=== PATIENT | male | born 1980 | race Caucasian/White ===

== ENCOUNTER 2024-11-19 10:30 | Emergency (ER) | payer BC, SELFPAY ==
[2024-11-19 10:47] VITALS: BP 166/115; PULSE 99; RESP 18; TEMP 36.6; O2SAT 95; BMI 32.0
--- NOTE | 2024-11-19 11:28 | ED.GENADULT ---
HPI - General Adult General Date Seen: 11/19/24 Chief complaint: Hypertension Stated complaint: High BP - Time Seen by Provider: 11/19/24 10:32 Source: patient Mode of arrival: ambulatory Limitations: no limitations History of Present Illness HPI narrative: Is a very nice 44-year-old gentleman who presents here for evaluation of elevated blood pressure, and facial flushing. He has was started on hydrochlorothiazide 25 mg last week. This was done in the indication of elevated blood pressure and also some fluid in his legs bilaterally, he was also given the diagnosis of diabetes, which caused a lot of anxiety for himself. He has been taking his blood pressure anywhere from 1-2 times per day, getting radiated readings in the 130-170 range systolic, and 100-120 diastolic. This morning he went to work at [employer]. He noted that his face was flushed, felt unwell, maybe a little bit of nausea while he was driving to work. He also described altered sensation across his face, more on the right but also on the left side. He does admit that he thinks he may had an anxiety attack at work. But overall felt that he was justified in to coming in here to be seen. He was driven here by a co-worker. No history of chest pain shortness of breath, syncopal episodes exertional component to any of the above, he has had no leg swelling if anything since he started the hydrochlorothiazide he has noted that his leg swelling of the LEs. Denies alcohol use, or drug use. Family history of heart disease in his grandfather who he thinks in his 60s. His cholesterol is good, lifetime nonsmoker but does have high blood pressure and diabetes type 2 he says now. Now he feels pretty good here. In talking to me Related Data Home Medications ?Medication ?Instructions ?Recorded ?Confirmed esomeprazole magnesium 20 mg 20 mg PO DAILY 11/19/24 11/19/24 capsule,delayed release (Acid Rocket Motor Tester (esomeprazole)) hydrochlorothiazide 25 mg tablet 25 mg PO DAILY 11/19/24 11/19/24 metformin 1,000 mg tablet 1,000 mg PO DAILY 11/19/24 11/19/24 Allergies Allergy/AdvReac Type Severity Reaction Status Date / Time No Known Drug Allergies Allergy Verified 11/19/24 10:56 Review of Systems Status of ROS: Reports: 10 or more systems reviewed and unremarkable except as noted in History and below [facility] Social History Smoking Status: Never smoker How often do you have a drink containing alcohol: never AUDIT-C Alcohol total score: 0 Non-prescribed substance use: denies use Exam Narrative: Exam Narrative: On examination in room 2 he is in no apparent distress, does seem slightly anxious, pupils equal round reactive to light his fundi are normal extraocular muscles are normal, cranial nerves 3-12 are normal his TMs are normal his oropharynx is normal, and his neck social no lymphadenopathy normal carotid a pulse says, with no bruits JVP is flat, and thyroid is normal midline not enlarged and nontender. His chest is good air entry bilaterally with no wheezing crackles noted his heart sounds are normal, his abdomen is soft and obese there is no guarding no organomegaly bowel sounds are normal he does not have a tremor, he has no rashes, he is neurologically intact in his upper lower extremities with good proximal distal power fingers nose testing is normal, he is able to scroll on his phone, and find his medication for me quite easily. Const: Vital Signs, click to edit/add: Vital Signs - 24 hr 11/19/24 10:47 Temperature 97.9 F Pulse Rate [Right Pulse Oximeter] 99 Respiratory Rate 18 Blood Pressure [Ri ght Upper Arm] 166/115 H Pulse Oximetry 95 Oxygen Delivery Me thod Room Air Documenting provider has reviewed patient's vital signs: yes Course Course ED Course: I discussed with the patient, he is having no acute symptoms, I do believe there is a number good a medical anxiety with the symptoms overall and he is now at baseline a I think a reasonable course here as is his basic metabolic profile is normal, that I think we can let him go home, he is reassured by this follow-up with primary care and consideration of adding an ASHLEY-inhibitor. Return as needed we went over signs and symptoms of worsening. Vital Signs Vital signs: Initial Vital Signs Temperature 97.9 F 11/19/24 10:47 Temperature Source Temporal Artery Scan 11/19/24 10:47 Pulse Rate 99 11/19/24 10:47 Pulse Rhythm Regular 11/19/24 10:47 Pulse Strength 3+ Normal 11/19/24 10:47 Respiratory Rate 18 02/06/25 10:47 Blood Pressure 166/115 H 11/19/24 10:47 Blood Pressure Mean 132 H 11/19/24 10:47 Blood Pressure Position Sitting 11/19/24 10:47 Pulse Oximetry 95 11/19/24 10:47 Oxygen Delivery Method Room Air 11/19/24 10:47 Vital Signs Temperature 97.9 F 11/19/24 10:47 Pulse Rate 99 11/19/24 10:47 Respiratory Rate 18 11/19/24 10:47 Blood Pressure 166/115 H 11/19/24 10:47 Pulse Oximetry 95 11/19/24 10:47 Oxygen Delivery Method Room Air 11/19/24 10:47 Temperature 97.9 F 11/19/24 10:47 Pulse Rate 99 11/19/24 10:47 Respiratory Rate 18 11/19/24 10:47 Blood Pressure 166/115 H 11/19/24 10:47 Pulse Oximetry 95 11/19/24 10:47 Oxygen Delivery Method Room Air 11/19/24 10:47 Medical Decision Making MDM Narrative Medical decision making narrative: I discussed with him that I think that there is an element of anxiety along with high blood pressure, I am not too worried about his symptoms, but would like to check some labs as he is on hydrochlorothiazide, which cause can cause some electrolyte abnormalities, we will also do an EKG, and then I will come back and talk to him and see how he is doing. I did consider other possibilities such as myocardial infarction stroke, TIA, pulmonary embolism, as possibilities Medical Records Medical records reviewed: Yes I reviewed the patient's medical records Lab Data Lab results reviewed: Yes I reviewed the patient's lab results Labs: Lab Results 11/19/24 11/19/24 Range/Units 11:15 11:25 WBC 5.61 (4.50-11.00) K/uL RBC 5.12 (4.30-5.90) m/uL Hgb 15.5 (13.5-17.5) gm/dL Hct 45.0 (37.0-53.0) % MCV 88 (80-100) fL MCH 30 (26-34) pg MCHC 34 (32-36) gm/dL RDW Coeff of [place] 12.4 (11.5-15.5) % Plt Count 177 (140-440) K/uL Neut % (Auto) 56.7 (42.0-72.0) % Lymph % (Auto) 29.9 (20-44) % [place] % (Auto) 10.0 (0.0-11.0) % Eos % (Auto) 2.3 (0.0-7.0) % Baso % (Auto) 0.9 (0.0-3.0) % Neut # (Auto) 3.18 (1.7-7.0) K/uL Lymph # (Auto) 1.68 (0.90-2.90) K/uL [place] # (Auto) 0.60 (0.00-0.90) K/UL Eos # (Auto) 0.13 (0.00-0.50) K/uL Baso # (Auto) 0.05 (0.00-0.30) K/uL Abs Immat Gran (auto) 0.01 (0.00-0.30) K/uL Imm/Tot Granulo (auto) 0.2 % Sodium 138 (135-149) mmol/L Potassium 4.1 (3.6-5.1) mmol/L Chloride 105 (96-114) mmol/L Carbon Dioxide 27 (20-32) mmol/L Anion Gap 6 L (7-15) mEq/L BUN 19 (5-24) mg/dL Creatinine 0.9 (0.5-1.5) mg/dL Estimated Creat Clear 130.63 Estimated GFR 107 ml/min Glucose 143 H (60-115) mg/dL Calcium 9.2 (8.4-10.6) mg/dL POC Troponin I 0.01 (0.01-0.04) ng/ml ECG Data Attestation: I personally reviewed and interpreted this ECG as follows: Prior ECG tracings: not available for review Interpretation: EKG shows normal sinus rhythm, with a ventricular rate 84, no acute ST wave changes, normal QRS normal QT and QTC. Discharge Plan Discharge Clinical Impression: Hypertension, Anxiety about health, Diabetes Patient Disposition: Home, Self-Care Condition: Stable Instructions: Hypertension (ED), Diabetes and Nutrition (ED), Diabetes and Exercise (ED) Additional Instructions: Reassurance given, continue medications as directed, follow-up with primary care if he has morales ice heat, your labs are reassuring with all ,I think a lot of how this is just as checking your blood pressure once a day that he is keeping a record, and follow-up with primary care physician, return here if increasing symptoms, headaches or other issues. Activity Level: No Restrictions Discharge Diet: Diabetic Prescriptions: No Action hydrochlorothiazide 25 mg tablet 25 mg PO DAILY metformin 1,000 mg tablet 1,000 mg PO DAILY esomeprazole magnesium [Acid Rocket Motor Tester (esomeprazole)] 20 mg capsule,delayed release(DR/EC) 20 mg PO DAILY Follow Up/Referrals: Provider,Not a Local [Primary Care Provider] - Stand Alone Forms: [employer] Info Instructions
--- OUTSIDE RECORDS SUMMARY | 2024-11-19 11:42 | XMS_ITS | Encounter Summary ---
Author Organization [facility] Address [address] [place] [address] Care Team Providers Care Hydroelectric Operator Name Role Phone Annalisa Mas MD Primary Care Provider [phone] Reason for Referral * Consult/Transfer Care (Routine) - New Request Specialty Diagnoses / Procedures Referred By Contac t Referred To Contact Diagnoses Type 2 diabetes mellitus without complication, without long-term current use of insulin (HRC) [place] [address] [place] [address] Referral ID Status Reason Start Date Expiration Date V isits Requested Visits Authorized [id number] New Request 11/12/2024 02/11/2026 1 1 Scheduling Instructions Your clinician has recommended an appointment with [facility]. You may call [phone] to schedule your appointment. We suggest you call your health insurance company about your coverage and benefits for this appointment. Question Answer Appointment Urgency? Non-Urgent Reason for visit New diagnosis (up to 10 hrs): Group Ed as appropriate Education / Management Needs (Additional hours may be needed) Medication Start/Educator to Choose, Initiate and Adjust per Standing Order; DM Education Participation Barriers (To Small Group Ed)? None Certification statement I certify that I am managing this patient s condition and education Plan of Care Diabetes self-management training includes: healthy eating, physical activity, monitoring, medications, reducing risks, problem-solving, healthy coping. Changes to plan should be documented in comment box. Additional details found in standing order. Individuals may be eligible for both DSMT and MNT services in the same year. I approve the delivery of initial MNT (3hrs) and/or annual follow-up MNT (2hrs). Yes Comments Other Barriers or Additional Comments: Last 2 A1c Performed in lab: HGB A1C (%) Date Value 04/17/2018 5.8 (H) 10/11/2015 5.5 Hemoglobin A1C (%) Date Value 09/07/2020 5.9 (H) Last 2 Point of Care A1c: Hemoglobin A1C (Rapid) (%) Date Value 11/10/2024 7.1 (H) 07/16/2023 6.1 (H) L BUFFER Encounter Details Date Type Department Care Team (Late st Contact Info) Description 11/12/2024 Notes/Orders [facility] [address] [place] [id number] Annalisa Mas MD [address] [place] [phone] Type 2 diabetes mellitus without complication, without long-term current use of insulin (HRC) (Primary Dx); Pre-diabetes Social History Tobacco Use Types Packs/Day Years Used Date Smoking Tobacco: Never Smokeless Tobacco: Never Alcohol Use Standard Drinks/Week Comments Yes 0 (1 standard drink = 0.6 oz pur e alcohol) 1-2x/year PHQ-2 Answer Date Recorded PHQ-2 Score 0 11/10/2024 Financial Resource Strain Answer Date R ecorded Is it hard for you to pay fo r the very basics like food, housing, medical care or heating? No 07/15/2023 Food Insecurity Answer Date Recorded Does your food run out before you have the money to buy more? No 07/15/2023 Transportation Needs Answer Date Record ed Does a lack of transportatio n keep you from your medical appointments or from getting your medications? No 023 Sex and Gender Information Value Date Recorded Sex Assigned at Not on file Gender Identity Not on file Sexual Orientation Not on file documented as of this encounter Plan of Treatment Upcoming Encounters Date Type Department Care Team (Late st Contact Info) Description 12/10/2024 8:00 AM WHEEL BUFFER Appointment [facility] [address] [place] [address] [place] [address] [place] [address] 12/11/2024 7:30 AM WHEEL BUFFER Telemedicine [facility] [address] [address] Marielle Meek, THAI, LD, [facility] [address] [place] [address] 12/15/2024 8:00 AM WHEEL BUFFER Appointment [facility] [address] Noninvasive Cardiology [address] [place] [phone] 12/25/2024 7:30 AM CDT Telemedicine [facility] Diabetes [address] [address] Marielle Meek RDN, LD, [facility] [address] [place] [address] 01/21/2025 8:40 AM CDT Appointment [facility] [id number] [place] [address] Clau Ortiz, MANAGER RESEARCH, PAID INTERNSHIP [address] [facility] [address] [place] [address] 02/15/2025 8:00 AM CDT Appointment [facility] [address] [place] [id number] Scheduled Referrals Name Type Priority Associated Diagnoses Orde r Schedule Diabetes Education and MNT - Adult/Peds Referral Routine Type 2 diabetes mellitus without complication, without long-term current use of insulin (HRC) Ordered: 11/12/2024 documented as of this encounter Visit Diagnoses Diagnosis Type 2 diabetes mellitus without complication, without long-term current use of insulin (HRC)- Primary Pre-diabetes Other abnormal glucose documented in this encounter Care Teams Hydroelectric Operator Relationship Specialty Start [place] [address] [place] [address] PCP - General Family Practice 08/14/16 documented as of this encounter
--- OUTSIDE RECORDS SUMMARY | 2024-11-19 11:42 | XMS_ITS | Encounter Summary ---
Author Organization [facility] Address [address] [place] [address] Care Team Providers Care Supervisor [employer] Name Role Phone Annalisa Mas MD Primary Care Provider Reason for Visit * Reason Comments Refill metFORMIN XR (GLUCOP LIZA XR) 500 MG 24 hour release tablet [Pharmacy Med Name: METFORMIN HCL ER 500 MG TABLET] Encounter Details Date Type Department Care Team (Late st Contact Info) Description 10/20/2024 Refill [facility] [address] [place] [address] [place] [address] [place] [address] Refill (metFORMIN XR (GLUCOPHAGE XR) 500 MG 24 hour release tablet [Pharmacy Med Name: METFORMIN HCL ER 500 MG TABLET]) Social History Tobacco Use Types Packs/Day Years Used Date Smoking Tobacco: Never Smokeless Tobacco: Never Alcohol Use Standard Drinks/Week Comments Yes 0 (1 standard drink = 0.6 oz pur e alcohol) 1-2x/year PHQ-2 Answer Date Recorded PHQ-2 Score 0 07/16/2023 Financial Resource Strain Answer Date R ecorded [...] on file documented as of this encounter Nursing Notes * Abbie Odell - 11/02/2024 9:09 AM CST Medication Refill - Due for Visit Medication still pending, patient is due to be seen in the next 30 days. Called patient, was: unable to reach patient. 2nd call attempted. Unsuccessful in reaching patient. [employer] (acquired by [employer] in 2014)t message sent. Frontline Action: Route to clinician identified in nursing documentation below. Clinician Action: Unsuccessful in reaching patient to schedule, requests refill. Please determine whether refill is appropriate. Recommend using ???Refuse All?? quick action to address request. S MANAGER * Abbie Odell - 11/02/2024 9:08 AM CST Medication Refill - Due for Visit Medication still pending, patient is due to be seen in the next 30 days. Called patient, was: unable to reach patient. 1st call attempted. Left message to call back. Scheduling Action: Patient needs to schedule an appointment in the next 30 days. If able to schedule, please document date of appointment and route to clinician/pool identified in nursing documentation below. S MANAGER * Tonja Marley RN - 10/22/2024 4:11 PM CST Further Assistance Needed on Refill from [employer] Machine Setter Patient is due for Qualifying Visit and labs Medication is still pending. Patient is due for an Office/Video Visit in the next 30 days. Call Patient and document using .RUDY. After attempting to schedule patient: Please route to: Annalisa Mas MD Requested Prescriptions Pending Prescriptions Disp Refills metFORMIN XR (GLUCOPHAGE XR) 500 MG 24 hour release tablet [Pharmacy Med Name: METFORMIN HCL ER 500MG TABLET] 180 Tablet 0 Sig: TAKE 2 TABLETS BY MOUTH EVERY EVENING WITH A MEAL. S MANAGER documented in this encounter Plan of Treatment Upcoming Encounters Date Type Department Care Team (Late st Contact Info) Description 12/10/2024 8:00 AM PRESS MANAGER Appointment [facility] [address] [place] [address] [place] [address] [place] [address] 12/11/2024 7:30 AM PRESS MANAGER Telemedicine [facility] Education [address] [address] Marielle Meek RDN, LD, [facility] [address] [place] [address] 12/15/2024 8:00 AM PRESS MANAGER Appointment [facility] [address] Noninvasive Cardiology [address] [place] [address] 12/25/2024 7:30 AM CDT Telemedicine [facility] Diabetes [address] [address] Marielle Meek RDN, LD, [facility] [address] [place] [address] 01/21/2025 8:40 AM CDT Appointment [facility] [address] [address] [address] [place] [address] Clau Ortiz, WINDOW DRAPER, TABLE GAMES DUAL RATE SUPERVISOR [address] [facility] [address] [place] [address] 02/15/2025 8:00 AM CDT Appointment [facility] [address] [place] [address] documented as of this encounter Visit Diagnoses Diagnosis Pre-diabetes Other abnormal glucose documented in this encounter Care Teams Supervisor [employer] Relationship Specialty Start [place] [address] [place] [address] PCP - General Family Practice 08/14/16 documented as of this encounter
--- OUTSIDE RECORDS SUMMARY | 2024-11-19 11:42 | XMS_ITS | Encounter Summary ---
Author Organization [employer] Address [address] [place] [address] Care Team Providers Care Stove Bottom Worker Name Role Phone Annalisa Mas MD Primary Care Provider Reason for Referral * Consult/Transfer Care (Routine) - New Request Specialty Diagnoses / Procedures Referred By Phu johnson Referred [place] [address] [place] [id number] Referral ID Status Reason Start Date Expiration Date V isits Requested Visits Authorized [id number] New Request 11/10/2024 02/09/2026 1 1 Scheduling Instructions Your clinician has recommended an appointment with Monisha Zamora. You can quickly schedule your appointment by signing in to your online account at [email or web address] or through the text message you may have received. You can also make an appointment by calling [phone]. We also suggest you call your health insurance provider about your benefits and coverage for this appointment. Question Answer Appointment Urgency? Non-Urgent Reason for Visit All other derm conditions T OF WAY WORKER * Consult/Transfer Care (Routine) - New Request Specialty Diagnoses / Procedures Referred By Phu t Referred To Contact Diagnoses Fatty liver (HRC) [place] [address] [place] [id number] Referral ID Status Reason Start Date Expiration Date V isits Requested Visits Authorized [id number] New Request 11/10/2024 02/09/2026 1 1 Scheduling Instructions Your clinician has recommended an appointment with [facility]. You can quickly make your appointment online at [email or web address]. You can also call [phone] for help scheduling your appointment. We suggest you call your health insurance company about your coverage and benefits for this appointment. Question Answer Appointment Urgency? Non-Urgent T OF WAY WORKER * Procedure/Equipment (Routine) - New Request Specialty Diagnoses / Procedures Referred By Contac t Referred To Contact Diagnoses LYNCH (dyspnea on exertion) Procedures Stress [place] [address] [place] [id number] Referral ID Status Reason Start Date Expiration Date V isits Requested Visits Authorized [id number] New Request 11/10/2024 02/09/[address]26 [address] * Procedure/Equipment (Routine) - Incomplete Specialty Diagnoses / Procedures Referred By Contac t Referred To Contact Diagnoses LYNCH (dyspnea on exertion) Procedures XR Chest 2 [place] [address] [place] [address] Referral ID Status Reason Start Date Expiration Date V isits Requested Visits Authorized [id number] Incomplete 11/10/2024 02/09/[address]26 [address] * Procedure/Equipment (Routine) - New Request Specialty Diagnoses / Procedures Referred By Contac t Referred To Contact Diagnoses Screening for colon cancer Procedures [place] [address] [place] [address] Referral ID Status Reason Start Date Expiration Date V isits Requested Visits Authorized [id number] New Request 11/10/2024 11/06/2026 [address] Reason for Visit * Reason Comments Annual Exam Encounter Details Date Type Department Care Team (Late st Contact Info) Description 11/10/2024 9:[address] WORKER Office Visit [address] [phone] [place] [address] [facility] [place] [phone] Annual physical exam (Primary Dx); Screening for colon cancer; Prediabetes; Encounter for long-term (current) use of medications; Other termite control servicer (current) drug therapy; Essential hypertension (HRC); Fatty liver (HRC); Pre-diabetes; Rosacea; Sensorineural hearing loss, unilateral; Gastroesophageal reflux disease, unspecified whether esophagitis present; LYNCH (dyspnea on exertion); Immunization due; Morbid obesity with BMI of 40.0-44.9, adult (HRC) Social History Tobacco Use Types Packs/Day Years [...] on file documented as of this encounter Last Filed Vital Signs Vital Sign Reading Time Taken Comments Blood Pressure 150/103 11/10/2024 8:[address] WORKER Pulse 75 11/10/2024 8:[address] WORKER Temperature - - Respiratory Rate - - Oxygen Saturation - - Inhaled Oxygen Concentration - - Weight 171.5 kg (378 lb) 11/10/2024 8:[address] WORKER Height 193.5 cm (6' 4.18) 11/10/2024 8:11 AM CS T Body Mass Index 45.79 11/10/2024 8:[address] WORKER documented in this encounter Progress Notes * Annalisa Mas MD - 11/10/2024 9:00 AM CST Preventive Physical Exam 11/10/2024 SUBJECTIVE: 44 y.o. year old male for a physical exam. Separate concerns include: Patient is a 44-year-old male who today came in for a physical. Patient has been checking the blood pressure has been running high.. Patient has been checking the blood pressure at home and systolic blood pressure is 1 30-140 and diastolic 80s to 90s. Father history of hypertension. Patient denies any chest pain but complain of shortness a breath with exertion off and on for 2 years. Patient does not have any cough, wheezing, fever and denies any orthopnea and PND andpatient do get some swelling in the lower extremity off and on but not every day for ear. Patient does not have any calf pain there is no swelling. Patient do get some swelling in the leg and has been sitting for a long time. Patient is currently not doing exercises but joint the weight loss program at work. 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 Patient has history of prediabetes and has beentaking metformin XR 1000 mg daily no side effects from the medication. Patient also history of GERDthat has been controlled with Nexium 20 mg daily no side effects of the medication. Patient denies any recent travel and no history of blood clot. Immunization History Administered Date(s) Administered Fluzone Qiv Multidose Vial 0.25 (6-35 Mos) 07/31/2018 H1n1 Miv Sanofi 3+ Yr (Injected) 08/30/2009 Influenza IIV4 (Quadrivalent) 0.5mL (94180) 08/11/2015, 08/04/2017, 07/28/2020, 08/13/2021, 10/29/2022, 08/11/2023 Influenza LAIV (Nasal, 2-49 yrs) 06/16/2013 Influenza, Unspecified Formulation 08/15/2002 Moderna Monovalent 12+ 12/29/2020, 01/26/2021, 08/24/2021 TDAP (BOOSTRIX) 10/12/2014 Td 10/22/2005 Tdap 11/10/2024 Past Medical History: Diagnosis Date GERD (gastroesophageal reflux disease) Social History: and have 2 children and patient is working and no smoking. No Known Allergies Outpatient Medications Prior to Visit Medication Sig esomeprazole (NEXIUM) 20 MG capsule Take 1 Capsule (20 mg) by mouth daily. [DISCONTINUED] azelaic acid (FINACEA) 15 % gel Apply topically daily. [DISCONTINUED] metFORMIN XR (GLUCOPHAGE XR) 500 MG 24 hour release tablet Take 2 Tablets (1,000 mg)by mouth every evening with a meal. No facility-administered medications prior to visit. Family History Problem Relation Name Age of Onset Thyroid Disorder Mother DVT/PE Mother AFTER FALLS Kidney/Bladder Disease Father RENAL FAILURE Diabetes Father Cancer Maternal Grandmother 65 breast Heart Disease Maternal Grandfather 67 FROM [place] Habits: reports current alcohol use. reports that he has never smoked. He has never used smokeless tobacco. reports no history of drug use. Review of Systems: With the exception of any items noted above, the remainder of the complete ROS is negative. Patientdenies being depressed. Healthcare maintenance: Patient did not have a colonoscopy done. OBJECTIVE: Vital Signs: BP (!) 150/103 (BP Location: Left Forearm, BP Cuff Size: Regular - Long) Pulse 75 Ht 6' 4.18 (1.935 m) Wt (!) 378 lb (171.5 kg) BMI 45.79 kg/m?? , Estimated body mass index is 45.79 kg/m?? as calculated from the following: Height as of this encounter: 6' 4.18 (1.935 m). Weight as of this encounter: 378 lb (171.5 kg). General: male, alert, in NAD. HEENT: PERRLA, EOMI, no icterus or injection. Bilateral TM's, external canals, oropharynx normal. Neck: Supple, without thyromegaly or mass. No LAD. No JVD or carotid bruits. CV: RRR without murmurs, rubs or gallops. 2/4 radial artery and dorsalis pedis pulse bilaterally. Resp: Clear to auscultation without crackles, wheezes or distress. Abdomen: Soft, non-tender, non-distended, without hepatosplenomegaly, masses. Lower Extremities: FROM, normal gait without edema, lesions, or deformity. Genitourinary: External normal without lesions. Testicles without nodules or mass. No inguinal hernias. Neuro: CN II-XII, motor & sensory function all intact. Psychiatric: Alert & oriented with normal affect and insight. ASSESSMENT: 1. Encounter Diagnoses Name Primary? Screening for colon cancer Prediabetes Encounter for long-term (current) use of medications Other termite control servicer (current) drug therapy Essential hypertension (HRC) Fatty liver (HRC) Pre-diabetes Rosacea Sensorineural hearing loss, unilateral Gastroesophageal reflux disease, unspecified whether esophagitis present LYNCH (dyspnea on exertion) Annual physical exam Yes Immunization due Morbid obesity with BMI of 40.0-44.9, adult ([facility]) PLAN: 1. Physical Exam was completed. Digital rectal exam completed. Patient declined flu and COVID shot. 2. Patient's blood pressure is running high and patient do have hypertension. Discuss about starting medication which the patient agreed. We will check the blood work and recommend to start hydrochlorothiazide 25 mg daily and prescription faxed and side-effects reviewed. Recommend low-salt diet andregular exercises and discuss about weight loss and recommend follow up in 1 month. 3.: Patient has history of prediabetes and will proceed with blood work and refill for metformin XRhas been done and side-effects reviewed. 4.: Also patient has shortness of breath for a while. It did check the EKG that shows normal sinus rhythm. Minimal voltage criteria for LVH maybe normal variant. Early transition. No previous EKGs. The chest x-ray shows no concerning findings. Recommend to proceed with stress echo for further evaluation. Recommend check insurance for coverage. If the workup is negative and patient continues to have shortness a breath will proceed with a monitor consultation. 5.: Patient has history of fatty liver and hepatomegaly. Will proceed with blood work and recommendto follow up with the solution engineer. Recommend 10% weight loss and low-fat diet. Orders Placed This Encounter Procedures Hgb A1C Vitamin B12 Only Complete Blood Count -W/Diff Basic Metabolic Panel Liver Panel (Hepatic Function Panel) TSH Lipid Panel and Direct LDL(If Needed) XR Chest 2 Views TDAP Gastroenterology Consult-Adults Dermatology Consult-Adult/Peds Stress Echocardiogram ECG 12 Lead Outpatient Colonoscopy Screening General preventive health measures were reviewed with patient. Labs: We will mail lab results to patient. Patient will be contacted by phone for any significant abnormalities. The note is completed by voice recognition dictation software and typographical error may result. *SH~DNS~PEF T OF WAY WORKER documented in this encounter Plan of Treatment Upcoming Encounters Date Type Department Care Team (Late st Contact Info) Description 12/10/2024 8:[address]ER Appointment [facility] [address] [place] [address] [place] [address] [place] [address] 12/11/2024 7:[address] [facility] [address] [address] Marielle Meek RDN, LD, [facility] [address] [place] [address] 12/15/2024 8:[address] WORKER Appointment [facility] [address] Noninvasive Cardiology [address] [place] [phone] 12/25/2024 7:[address] [facility] Diabetes [address] [address] Marielle Meek RDN, LD, [address] [address] 01/21/2025 8:40 AM CDT Appointment [facility] [place] [address] [facility] [address] [place] [address] Clau Ortiz, MARKETING ROTATION ASSOCIATE, BLANKET FOLDER [address] [facility] [address] [place] [address] 02/15/2025 8:00 AM CDT Appointment [facility] [id number] [place] [address] Scheduled Orders Name Type Priority Associated Diagnoses Orde r Schedule Colonoscopy Screening GI Routine Screening for colon cancer 1 Occurrences starting 11/10/2024 until 11/06/2026 Scheduled Referrals Name Type Priority Associated Diagnoses Orde r Schedule Gastroenterology Consult-Adults Referral Routine Fatty liver (HRC) Ordered: 11/10/2024 Dermatology Consult-Adult/Peds Referral Routine Rosacea Ordered: 11/10/2024 documented as of this encounter Procedures Procedure Name Priority Date/Time Associated Diagnosis Comments ECG 12 LEAD OUTPATIENT Routine 11/10/2024 9:[address] WORKER LYNCH (dyspnea on exertion) documented in this encounter Results * XR Chest 2 Views (11/10/2024 9:[address] WORKER) Anatomical Region Laterality Modality Chest, Lung Digital Radiogra phy 11/10/2024 9:[address] WORKER Narrative 11/10/2024 10:[address] WORKER COMPARISON: 06/03/2013. FINDINGS: 2 views. The heart size and pulmonary vascularity are within normal limits. There is mild linear atelectasis versus scarring/fibrosis in the lingula. Lungs are clear otherwise. No pleural effusion or evidence of a pneumothorax. No acute appearing bony abnormality. Procedure Note Stephen Enciso MD - 11/10/2024 COMPARISON: 06/03/2013. FINDINGS: 2 views. The heart size and pulmonary vascularity are withinnormal limits. There is mild linear atelectasis versus scarring/fibrosisin the lingula. Lungs are clear otherwise. No pleural effusion or evidenceof a pneumothorax. No acute appearing bony abnormality. Annalisa Mas MD RAD GD * Lipid Panel and Direct LDL(If Needed) (11/10/2024 9:[address] WORKER) [facility] Cholesterol 177 0 - 199 mg/dL 11/10/2024 2:[address] WORKER [facility] Triglyceride 80 <=149 mg/dL 11/10/2024 2:[address] WORKER [facility] HDL Cholesterol 52 >=40 mg/dL 2:[address] WORKER [facility] LDL, Calculated 109 <130 mg/dL 2:[address] WORKER [facility] Non HDL Chol, Calculated 125 <=159 mg/dL 11/10/2024 2:[address] WORKER [facility] Cholesterol/HDL Ratio 3.4 <=5.0 11/10/2024 2:[address] WORKER [facility] Hours Fasting 14.0 8 - 12 Hours 11/10/2024 2:[address] WORKER [facility] Blood Venipuncture / Unknown 11/10/2024 9:[address] WORKER 11/10/2024 9:[address] WORKER Annalisa Mas MD LAB_1 Performing Organization Address City/[facility]/ZIP Co de Phone Number [facility] [address] [place] [address] [place] [address] * TSH (11/10/2024 9:[address] WORKER) Pathologist [facility] TSH, Sensitive 3.24 0.30 - 4.50 uIU/mL 11/10/2024 5:[address] WORKER [facility] Blood Venipuncture / Unknown 11/10/2024 9:[address] WORKER 11/10/2024 9:[address] WORKER Annalisa Mas MD LAB_1 [facility] [address] [place] [address] * (ABNORMAL) Liver Panel (Hepatic Function Panel) (11/10/2024 9:[address] WORKER) [facility] Alkaline Phosphatase 78 40 - 150 U/L 11/10/2024 2:[address] WORKER [facility] Bilirubin, Total 0.6 0.2 - 1.2 mg/dL 11/10/2024 2:[address] WORKER [facility] Bilirubin, Direct 0.3 0.0 - 0.5 mg/dL 11/10/2024 2:[address] WORKER [facility] AST (SGOT) 38 10 - 40 U/L 11/10/2024 2:[address] WORKER [facility] ALT (SGPT) 67(H) 0 - 55 U/L 11/10/2024 2:[address] WORKER [facility] Protein, Total 6.9 6.4 - 8.3 g/dL 11/10/2024 2:[address] WORKER [facility] Albumin 4.0 3.5 - 5.0 g/dL 11/10/2024 2:[address] WORKER [facility] Blood Venipuncture / Unknown 11/10/2024 9:[address] WORKER 11/10/2024 9:[address] WORKER Annalisa Mas MD LAB_1 [facility] [address] * (ABNORMAL) Basic Metabolic Panel (11/10/2024 9:[address] WORKER) [facility] Sodium 140 136 - 145 mmol/L 11/10/2024 2:[address] WORKER [facility] Potassium 4.3 3.5 - 5.1 mmol/L 11/10/2024 2:[address] WORKER [facility] Chloride 110(H) 98 - 109 mmol/L 11/10/2024 2:[address] WORKER [facility] CO2 22 20 - 29 mmol/L 11/10/2024 2:[address] WORKER [facility] Anion Gap 8 6 - 16 mmol/L 11/10/2024 2:[address] WORKER [facility] Calcium 9.0 8.4 - 10.4 mg/dL 11/10/2024 2:[address] WORKER [facility] BUN 13 7 - 26 mg/dL 11/10/2024 2:[address] WORKER [facility] Creatinine 0.93 0.73 - 1.18 mg/dL 11/10/2024 2:51 PM [facility] Glucose 155(H) 70 - 100 mg/dL 11/10/2024 2:51 PM [facility] Comment:The given reference range is for the fasting state. Non-fasting reference range for glucose is 70 - 180 mg/dL. GFR, Estimated >60 >60 mL/min/1.7 3m2 11/10/2024 2:51 PM [facility] Hours Fasting 14.0 8 - 12 Hours 11/10/2024 2:51 PM [facility] Blood Venipuncture / Unknown 11/10/2024 9:[address] WORKER 11/10/2024 9:[address] WORKER Annalisa Mas MD LAB_1 Performing Organization Address City/[facility]/ZIP Co de Phone Number [facility] [address] [place] [address] [address] [place] [address] * Vitamin B12 Only (11/10/2024 9:[address] WORKER) Vitamin B12 561 213 - 816 pg/mL 11/10/2024 6:22 PM [facility] Blood Venipuncture / Unknown 11/10/2024 9:[address] WORKER 11/10/2024 9:[address] WORKER Annalisa Mas MD LAB_1 Performing Organization Address City/[facility]/ZIP Co de Phone Number [facility] [address] [place] [address] * (ABNORMAL) Hgb A1C (11/10/2024 9:[address] WORKER) Hemoglobin A1C (Rapid) 7.1(H) <=5.6 % 11/10/2024 2:43 PM [facility] Estimated Average Glucose (Calc) 157 < 117 mg/dL 11/10/2024 2:43 PM [facility] Comment:Estimated average gl ucose (eAG) converts A1c into glucose units (mg/dL) and estimates average glucose over the past approximately 3 months. The eAG reference interval (<117 mg/dL) corresponds to an A1c of <5.7%. Blood Venipuncture / Unknown 11/10/2024 9:[address] WORKER 11/10/2024 9:[address] WORKER Narrative [facility] - 11/10/2024 2:[address] WORKER For patients not previously diagnosed with diabetes: 5.7-6.4%: Increased risk for diabetes 6.5% and greater: Diagnostic for diabetes For patients diagnosed with diabetes: <8.0%: Goal of therapy for ages 18-75 Clinicians may recommend a higher or lower goal for specific individuals. The test method used for this Hemoglobin A1c result can experience interference from elevated hemoglobin and other hemoglobin variants. In patients with results that do not correlate clinically, contact the lab for further direction. Annalisa Mas MD LAB_1 [facility] [address] [place] [address] * ECG 12 Lead Outpatient (11/10/2024 9:[address] WORKER) Ventricular Rate 81 BPM MUSE GHP Atrial Rate 81 BPM MUSE GHP P-R Interval 148 ms MUSE GHP QRS Duration 90 ms MUSE GHP QT 364 ms MUSE GHP QTC 422 ms MUSE GHP P Cassoday 18 degrees MUSE GHP R Cassoday 5 degrees MUSE GHP T Cassoday 8 degrees MUSE GHP 11/10/2024 9:[address] WORKER Narrative [facility] - 11/10/2024 10:[address] WORKER Sinus rhythm Minimal voltage criteria for LVH, may be normal variant Early transition No previous ECGs available Confirmed by Uvaldo Stratton ([id number]) on 11/10/2024 10:06:24 AM Procedure Note Uvaldo Stratton MD - 11/10/2024 Sinus rhythm Minimal voltage criteria for LVH, may be normal variant Early transition No previous ECGs available Confirmed by Uvaldo Stratton ([id number]) on 11/10/2024 10:06:24 AM Annalisa Mas MD PN ECG ORDERABLES [facility] [address] [place] [address] documented in this encounter Visit Diagnoses Diagnosis Annual physical exam- Primary Routine general medical examination at a health care facility Screening for colon cancer Special screening for malignant neoplasms, colon Prediabetes Other abnormal glucose Encounter for long-term (current) use of medications Encounter for long-term (current) use of other medications Other termite control servicer (current) drug therapy Essential hypertension (HRC) Unspecified essential hypertension Fatty liver (HRC) Other chronic nonalcoholic liver disease Pre-diabetes Other abnormal glucose Rosacea Sensorineural hearing loss, unilateral Gastroesophageal reflux disease, unspecified whether esophagitis present LYNCH (dyspnea on exertion) Other dyspnea and respiratory abnormality Immunization due Need for prophylactic vaccination and inoculation against unspecified single disease Morbid obesity with BMI of 40.0-44.9, adult (HRC) LYNCH (dyspnea on exertion) Other dyspnea and respiratory abnormality documented in this encounter Care Teams Stove Bottom Worker Relationship Specialty Start [place] [address] [place] [place] [address] PCP - General Family Practice 08/14/16 documented as of this encounter
--- OUTSIDE RECORDS SUMMARY | 2024-11-19 11:42 | XMS_ITS | Clinical Summary ---
Author Organization [facility] [place], [place] [address] Care Team Providers Care Charge Gang Weigher Name Role Phone Clinic, No Pcp Or Primary Care Provider Unavaila ble Social History Tobacco Use Types Packs/Day Years Used Date Smoking Tobacco: Never Assessed Sex and Gender Information Value Date Recorded Sex Assigned at Not on file Legal Sex Male 8:29 AM CDT Gender Identity Not on file Sexual Orientation Not on file Plan of Treatment Not on file Insurance [employer]-ITS Care Teams Charge Gang Weigher Relationship Specialty Start Date End Date Clinic, No Pcp Or . PCP - General 05/21/21
--- OUTSIDE RECORDS SUMMARY | 2024-11-19 11:42 | XMS_ITS | Encounter Summary ---
Author Organization [employer] Address [address] [place] [address] Care Team Providers Care Rural Health Consultant Name Role Phone Annalisa Mas MD Primary Care Provider [phone] Reason for Visit * Procedure/Equipment (Routine) - Incomplete Specialty Diagnoses / Procedures Referred By Contac t Referred To Contact Diagnoses LYNCH (dyspnea on exertion) Procedures XR Chest [place] [address] [place] [id number] Referral ID Status Reason Start Date Expiration Date V isits Requested Visits Authorized [id number] Incomplete 11/10/2024 02/09/2026 1 1 Encounter Details Date Type Department Care Team (Latest Contact Info) Description 11/10/2024 9:50 AM LICENSED PHARMACIST Ancillary Procedure [facility] [address] [facility] [place] [address] [place] [address] [place] [id number] LYNCH (dyspnea on exertion) Social History Tobacco Use Types Packs/Day Years [...] st Contact Info) Description 12/10/2024 8:00 AM LICENSED PHARMACIST Appointment [facility] [address] [place] [address] [place] [address] [place] [address] 12/11/2024 7:30 AM LICENSED PHARMACIST Telemedicine [facility] Diabetes Education [address] [address] Marielle Meek RDN, LD, [facility] [address] [place] [address] 12/15/2024 8:00 AM LICENSED PHARMACIST Appointment [facility] [address] Noninvasive Cardiology [address] [place] [phone] 12/25/2024 7:30 AM CDT Telemedicine [facility] Diabetes [address] [address] Marielle Meek RDN, LD, [facility] [address] [place] [address] 01/21/2025 8:40 AM CDT Appointment [facility] [address] [address] [place] [address] Clau Ortiz, MEASUREMENT DEPARTMENT CHIEF CLERK, DIRECTOR OF ATHLETICS [address] [facility] [address] [place], [place] [address] 02/15/2025 8:00 AM CDT Appointment [facility] [address] [place] [address] documented as of this encounter Procedures Procedure Name Priority Date/Time Associated Diagnosis Comments XR CHEST 2 VIEWS Routine 11/10/2024 9:53 AM LICENSED PHARMACIST LYNCH (dyspnea on exertion) documented in this encounter Results * XR Chest 2 Views (11/10/2024 9:53 AM LICENSED PHARMACIST) Anatomical Region Laterality Modality Chest, Lung Digital Radiogra phy 11/10/2024 9:48 AM LICENSED PHARMACIST Narrative 11/10/2024 10:44 AM LICENSED PHARMACIST COMPARISON: 06/03/2013. FINDINGS: 2 views. The heart [...] bony abnormality. Annalisa Mas MD RAD GD documented in this encounter Visit Diagnoses Diagnosis LYNCH (dyspnea on exertion) Other dyspnea and respiratory abnormality documented in this encounter Care Teams Rural Health Consultant Relationship Specialty Start Date End Date Annalisa Mas MD [address] [place] [address] [place] [address] PCP - General Family Practice 08/14/16 documented as of this encounter
--- OUTSIDE RECORDS SUMMARY | 2024-11-19 11:42 | XMS_ITS | Encounter Summary ---
Author Organization [employer] Address [address] [place] [address] Care Team Providers Care Maple Sugar Maker Name Role Phone Annalisa Mas MD Primary Care Provider Reason for Visit * Reason Onset Date Comments EAR,RINGING 08/14/2016 Encounter Details Date Type Department Care Team (Late st Contact Info) Description 08/14/2016 Nurse Triage [facility] [address] [place], [place] [phone] [place] [address] [place], [place] [phone] EAR,RINGING Social History Tobacco Use Types Packs/Day Years Used Date Smoking Tobacco: Never Smokeless Tobacco: Never Alcohol Use Standard Drinks/Week Comments Yes 0 (1 standard drink = 0.6 oz pur e alcohol) Rare Sex and Gender Information Value Date Recorded Sex Assigned at Not on file Gender Identity Not on file Sexual Orientation Not on file documented as of this encounter Nursing Notes * Lakeshia Bhakta LPN - 08/14/2016 4:06 PM CDT vm left for pt with number for ENT * Annalisa Mas MD - 08/14/2016 3:42 PM CDT Please notify that order for ENT entered.Thanks * Yudi Machuca RN - 08/14/2016 3:00 PM CDT Reason for Call: New order requested. Next Steps: Review pended order for accuracy. Sign. Route to appropriate person/pool. Caller IS expecting a call back from Care Team. Additional Information: Patient requesting referral to ENT for tinnitis. Protocol: [id number] Affirmative: Symptoms only or mainly in 1 ear (unilateral tinnitus) Disposition of See PCP When Office Is Open (Within 3 Days) suggested. Patient having ringing, slight discomfort and decreased hearing in his L ear only for about 2 months. Does not think it is wax or infection because had ears evaluated when he was recently fitted for custom designed earplugs for his job, and he was told his ears were clean, appeared regular/healthy. Patient encouraged to see pcp but declines, wants to check if pcp would send in referral without OV- does not want to pay for OV with pcp and then another OV with specialst * Rosmery Coburn - 08/14/2016 12:31 PM CDT Referral/Consult Caller Name/Relationship: Jn / Self Primary Care Provider: Annalisa Mas MD What referral is needed? ENT Why is referral needed? Ringing in Ears Insurance Carrier: [facility] Appointment already scheduled? no When/With whom/Where? N/A What is needed from us? Referral to ENT Call back phone or cell phone: [phone] Best time to call back number: Anytime Is it OK to leave a confidential message on this voicemail? Yes *ECODE documented in this encounter Plan of Treatment Upcoming Encounters Date Type Department Care Team (Late st Contact Info) Description 12/10/2024 8:00 AM DIGITAL MARKETING ANALYST Appointment [facility] [address] [place] [address] Annalisa Mas MD [address] [place] [address] 12/11/2024 7:30 AM DIGITAL MARKETING ANALYST Telemedicine [facility] Diabetes Education [address] [address] Marielle Meek RDN, LD, [facility] [address] [place] [address] 12/15/2024 8:00 AM DIGITAL MARKETING ANALYST Appointment [facility] [address] Noninvasive Cardiology [address] [place] [phone] 12/25/2024 7:[address] [facility] Diabetes [address] [address] Marielle Meek RDN, LD, [facility] [address] [place] [address] 01/21/2025 8:40 AM CDT Appointment [facility] [address] [address] Clau Ortiz, AGRICULTURAL EQUIPMENT MECHANIC, CONE MARKER [address] [facility] [address] [place] [address] 02/15/2025 8:00 AM CDT Appointment [facility] [address] [place] [address] documented as of this encounter Visit Diagnoses Diagnosis Tinnitus, left- Primary Unspecified tinnitus documented in this encounter Care Teams Maple Sugar Maker Relationship Specialty [place] [address] [address] [address] PCP - General Family Practice 08/14/16 documented as of this encounter
--- OUTSIDE RECORDS SUMMARY | 2024-11-19 11:42 | XMS_ITS | Clinical Summary ---
Author Organization [facility] Address [address] [place] [address] Care Team Providers Care Director Life Insurance Name Role Phone Annalisa Mas MD Primary Care Provider [phone] Source Comments You are receiving this document as you are listed as the primary care provider,follow-up provider, or the patient has been referred to you for consultation.This is in compliance with the Medicare and[facility] EHR Incentive Program,which states Providers who transition their patient to another setting of careor provider of care or refers their patient to another provider of care shouldprovide summary care record for each transition of care or referral. [facility] Allergies No known active allergies Medications Medication Sig Dispensed Refills Start Date End Date Status esomeprazole (NEXIUM) 20 MG capsule Take 1 Capsule (20 mg) by mouth daily. Active hydroCHLOROthiazid e (ORETIC) 25 MG tabletIndications: Essential hypertension (HRC) Take 1 Tablet (25 mg) by mouth daily. 30 Tablet 11/10/2024 6 Active metFORMIN XR (GLUCOPHAGE XR) 500 MG 24 hour release tabletIndications: Type 2 diabetes mellitus without complication, without long-term current use of insulin (HRC) Take 3 tablets by mouth every evening with a meal for 1 week and then increase to 4 tablets daily. 360 Tablet 11/12/2024 Active azelaic acid (FINACEA) 15 % gelIndications:Ros acea Apply topically daily. 50 g 3 07/16/2023 5 Discontinue d(Erroneous Entry/Dupli paula/Other) metFORMIN XR (GLUCOPHAGE XR) 500 MG 24 hour release tabletIndications: Pre-diabetes Take 2 Tablets (1,000 mg) by mouth every evening with a meal. 180 Tablet 07/22/2024 5 Discontinue d(*Med change OR same med OR reorder, new dose/direct ions) metFORMIN XR (GLUCOPHAGE XR) 500 MG 24 hour release tabletIndications: Pre-diabetes Take 2 Tablets (1,000 mg) by mouth every evening with a meal. 180 Tablet 3 11/10/2024 5 Discontinue d(*Med change OR same med OR reorder, new dose/direct ions) Active Problems Problem Noted Date Diagnosed Date Type 2 diabetes mellitus without complication Essential hypertension 11/10/2024 Fatty liver 07/11/2020 Sensorineural hearing loss, unilateral 6 Rosacea 10/27/2013 Seborrhea 07/30/2013 Esophageal reflux 06/07/2009 Overview (06/05/2017): Gastroesophageal Reflux Disease Resolved Problems Problem Noted Date Diagnosed Date Resolved Date Pre-diabetes 07/11/2020 11/12/2024 Nausea 05/29/2013 10/12/2014 Acute abdominal pain 05/28/[address] scan 05/28/2013 0 05/30/2013 Acute gastroenteritis 05/28/20132013 Encounters Date Type Department Care Team Description 11/12/2024 Notes/Orders [facility] [id number] [place] [id number] Annalisa Mas MD Type 2 diabetes mellitus without complication, without long-term current use of insulin (HRC) (Primary Dx); Pre-diabetes 11/10/2024 9:50 AM TALENT ACQUISITION ADMINISTRATOR Ancillary Procedure [facility] [id number] [place] [id number] Annalisa Mas MD LYNCH (dyspnea on exertion) 11/10/2024 9:30 AM TALENT ACQUISITION ADMINISTRATOR Lab Visit [facility] [address] [place] [address] Prediabetes; Encounter for long-term (current) use of medications; Essential hypertension (HRC); Fatty liver (HRC); Morbid obesity with BMI of 40.0-44.9, adult (HRC); Annual physical exam 11/10/2024 9:00 AM TALENT ACQUISITION ADMINISTRATOR Office Visit [place] [id number] [place] [address] Annalisa Mas MD Annual physical exam (Primary Dx); Screening for colon cancer; Prediabetes; Encounter for long-term (current) use of medications; Other nursing home (current) drug therapy; Essential hypertension (HRC); Fatty liver (HRC); Pre-diabetes; Rosacea; Sensorineural hearing loss, unilateral; Gastroesophageal reflux disease, unspecified whether esophagitis present; LYNCH (dyspnea on exertion); Immunization due; Morbid obesity with BMI of 40.0-44.9, adult (HRC) 10/20/2024 Refill [facility] [address] [place] [address] Annalisa Mas MD Refill (metFORMIN XR (GLUCOPHAGE XR) 500 MG 24 hour release tablet [Pharmacy Med Name: METFORMIN HCL ER 500 MG TABLET]) from Last 3 Months Immunizations Name Administration Dates Next Due Fluzone Qiv Multidose Vial 0 .25 (6-35 Mos) 07/31/2018 H1n1 Miv Sanofi 3+ Yr (Injected) 08/30/2009 Influenza IIV4 (Quadrivalent ) 0.5mL (67486) 08/11/2023,10/29/2022,08/13/2021,2019,08/04/2017,08/11/2015 Influenza LAIV (Nasal, 2-49 yrs) 06/16/2013 Influenza, Unspecified Formulation 08/15/2002 Moderna Monovalent 12+ 08/24/2021,01/26/2021, TDAP (BOOSTRIX) 10/12/2014 Td 10/22/2005 Tdap 11/10/2024 Family History Medical History Relation Name Comments Diabetes Father Kidney/Bladder Disease Father RENAL FAILURE DVT/PE Mother AFTER FALLS Thyroid Disorder Mother Heart Disease Maternal Grandfather DECEAS ED FROM [place] Cancer Maternal Grandmother breast Relation Name Status Comments Father Mother Alive Maternal Grandfather Maternal Grandmother Social History Tobacco Use Types Packs/Day Years [...] on file Sexual Orientation Not on file Last Filed Vital Signs Vital Sign Reading Time Taken Comments Blood Pressure 150/103 11/10/2024 8:20 AM TALENT ACQUISITION ADMINISTRATOR Pulse 75 11/10/2024 8:20 AM TALENT ACQUISITION ADMINISTRATOR Temperature 37 C (98.6 F) 05/30/2013 6:24 AM CDT Respiratory Rate 17 04/25/2018 10:39 AM CDT Oxygen Saturation 95% 06/03/2013 12:28 PM CDT Inhaled Oxygen Concentration - - Weight 171.5 kg (378 lb) 11/10/2024 8:11 AM TALENT ACQUISITION ADMINISTRATOR Height 193.5 cm (6' 4.18) 11/10/2024 8:11 AM CS T Body Mass Index 45.79 11/10/2024 8:11 AM TALENT ACQUISITION ADMINISTRATOR Plan of Treatment Upcoming Encounters Date Type Department Care Team (Late st Contact Info) Description 12/10/2024 8:00 AM TALENT ACQUISITION ADMINISTRATOR Appointment [facility] [address] [facility] [place] [address] [place] [address] [place] [address] 12/11/2024 7:30 AM TALENT ACQUISITION ADMINISTRATOR Telemedicine [facility] [place] [address] [place] [address] Marielle Meek RDN, LD, [facility] [address] [place] [address] 12/15/2024 8:00 AM TALENT ACQUISITION ADMINISTRATOR Appointment [facility] [address] Non[facility] Cardiology [address] [place] [phone] 12/25/2024 7:30 AM CDT Telemedicine [facility] [place] [address] [place] [address] Marielle Meek RDN, LD, [facility] [address] [place] [address] 01/21/2025 8:40 AM CDT Appointment [facility] [address] [address] [address] [place] [address] Clau Ortiz, ACCESS REGISTRAR, GLASS TINTER [address] [facility] [address] [place], [place] [address] 02/15/2025 8:00 AM CDT Appointment [facility] [address] [place] [address] Health Maintenance Due Date Last Done Comments Colon Cancer Screening Plan Due 1979 Diabetes: Eye Exam 1979 Diabetes: Foot Exam 1979 Diabetes: Urine Microalbumin 1979 Pneumococcal (1 - PCV) 1985 HepB (1) 1998 COVID-19 Vaccine ( season) 2024 08/24/2021, 01/26/2021, 12/29/2020 Influenza (#1) 2024 08/11/2023, 10/14, 08/13/2021, Additional history exists Diabetes: HGBA1C 05/10/2025 11/10/2024, 12/2022, 09/07/2020, Additional history exists Adult Preventive Visit 11/10/2025 , 07/16/2023, 09/14/2020, Additional history exists Diabetes: Creatinine 11/10/2025 11/10/2024, 07/16/2023, 09/07/2020, Additional history exists Zoster/Shingles (1 of 2) 2029 Diabetes: Lipid Panel 11/10/2029 11/10/2024 , 07/16/2023, 09/07/2020, Additional history exists DTaP/Tdap/Td (3 - Tdap) 11/10/2034 11/10/19, 10/12/2014, 10/22/2005 Hep C Screening (Preventive Services) Completed 04/25/2018, 04/22/2018 HIV Screening (Preventive Services) Completed 09/07/2020 Cholesterol Discontinued 11/10/2024, 12/2022, 09/07/2020, Additional history exists HPV Vaccine Aged Out No longer eligi ble based on patient's age to complete this topic HepA Aged Out No longer eligi ble based on patient's age to complete this topic Hib Aged Out No longer eligi ble based on patient's age to complete this topic IPV (Polio) Aged Out No longer eligi ble based on patient's age to complete this topic MCV4 Aged Out No longer eligi ble based on patient's age to complete this topic Procedures Procedure Name Priority Date/Time Associated Diagnosis Comments XR CHEST 2 VIEWS Routine 11/10/2024 9:53 AM TALENT ACQUISITION ADMINISTRATOR LYNCH (dyspnea on exertion) COMPLETE BLOOD COUNT-W/DIFF Routine 11/10/2024 9:46 AM TALENT ACQUISITION ADMINISTRATOR Essential hypertension (HRC) LIPID PANEL & DIRECT LDL (IF NEEDED) Routine 11/10/2024 9:46 AM TALENT ACQUISITION ADMINISTRATOR Annual physical exam TSH, SENSITIVE Routine 11/10/2024 9:46 AM TALENT ACQUISITION ADMINISTRATOR Morbid obesity with BMI of 40.0-44.9, adult (HRC) LIVER PANEL(HEPATIC FUNCTION PANEL) Routine 11/10/2024 9:46 AM TALENT ACQUISITION ADMINISTRATOR Fatty liver (HRC) BASIC METABOLIC PANEL Routine 11/10/2024 9:46 AM TALENT ACQUISITION ADMINISTRATOR Essential hypertension (HRC) CBC AND DIFFERENTIAL PANEL Routine 11/10/2024 9:46 AM TALENT ACQUISITION ADMINISTRATOR Essential hypertension (HRC) VITAMIN B12 ONLY Routine 11/10/2024 9:46 AM TALENT ACQUISITION ADMINISTRATOR Encounter for long-term (current) use of medications HGB A1C Routine 11/10/2024 9:46 AM TALENT ACQUISITION ADMINISTRATOR Prediabetes ECG 12 LEAD OUTPATIENT Routine 11/10/2024 9:25 AM TALENT ACQUISITION ADMINISTRATOR LYNCH (dyspnea on exertion) HIV 1/2 AG/AB 4TH GEN Routine 09/07/2020 9:32 AM TALENT ACQUISITION ADMINISTRATOR Screening for HIV (human immunodeficiency virus) HEPATITIS PANEL ACUTE WITH REFLEX TO CONFIRMATION Routine 04/25/2018 11:41 AM CDT Abnormal results of liver function studies from Last 3 Months or Most Recently Relevant to Health Maintenance Results * XR Chest 2 Views (11/10/2024 9:53 AM TALENT ACQUISITION ADMINISTRATOR) Anatomical Region Laterality Modality Chest, Lung Digital Radiogra phy 11/10/2024 9:48 AM TALENT ACQUISITION ADMINISTRATOR Narrative 11/10/2024 10:44 AM TALENT ACQUISITION ADMINISTRATOR COMPARISON: 06/03/2013. FINDINGS: 2 views. The heart [...] and Direct LDL(If Needed) (11/10/2024 9:46 AM TALENT ACQUISITION ADMINISTRATOR) Pathologist [facility] Cholesterol 177 0 - 199 mg/dL 11/10/2024 2:51 PM TALENT ACQUISITION ADMINISTRATOR [facility] Triglyceride 80 <=149 mg/dL 11/10/2024 2:51 PM TALENT ACQUISITION ADMINISTRATOR [facility] HDL Cholesterol 52 >=40 mg/dL 2:51 PM TALENT ACQUISITION ADMINISTRATOR [facility] LDL, Calculated 109 <130 mg/dL 2:51 PM TALENT ACQUISITION ADMINISTRATOR [facility] Non HDL Chol, Calculated 125 <=159 mg/dL 11/10/2024 2:51 PM TALENT ACQUISITION ADMINISTRATOR [facility] Cholesterol/HDL Ratio 3.4 <=5.0 11/10/2024 2:51 PM TALENT ACQUISITION ADMINISTRATOR [facility] Hours Fasting 14.0 8 - 12 Hours 11/10/2024 2:51 PM [facility] Blood Venipuncture / Unknown 11/10/2024 9:46 AM TALENT ACQUISITION ADMINISTRATOR 11/10/2024 9:46 AM TALENT ACQUISITION ADMINISTRATOR Annalisa Mas MD LAB_1 [facility] [address] LABORATORY [address] [place] [phone] * Complete Blood Count-W/Diff (11/10/2024 9:46 AM TALENT ACQUISITION ADMINISTRATOR) Pathologist [facility] WBC 4.9 3.5 - 10.5 x10(9)/L 11/10/2024 10:23 AM [facility] RBC 5.12 4.32 - 5.72 x10(12)/L 11/10/2024 10:23 AM [facility] Hemoglobin 15.4 13.5 - 17.5 g/dL 11/10/2024 10:23 AM [facility] HCT 45.4 38.8 - 50.0 % 11/10/2024 10:23 AM [facility] MCV 88.7 80.0 - 100.0 fL 11/10/2024 10:23 AM [facility] MCH 30.1 27.6 - 33.3 pg 11/10/2024 10:23 AM [facility] MCHC 33.9 31.5 - 35.2 g/dL 11/10/2024 10:23 AM [facility] RDW 13.1 11.9 - 15.5 % 11/10/2024 10:23 AM [facility] Platelets 193 150 - 450 x10(9)/L 11/10/2024 10:23 AM [facility] Automated NRBC 0 <=0 /100 WBC 11/10/2024 10:23 AM [facility] Neutrophil Absolute 2.6 1.7 - 7.0 10(9)/L 11/10/2024 10:23 AM [facility] Lymphocyte Absolute 1.5 1.0 - 4.8 10(9)/L 11/10/2024 10:23 AM [facility] Monocyte Absolute 0.5 0.2 - 0.9 10(9)/L 11/10/2024 10:23 AM [facility] Eosinophil Absolute 0.1 0.0 - 0.5 10(9)/L 11/10/2024 10:23 AM [facility] Basophil Absolute 0.0 0.0 - 0.3 10(9)/L 11/10/2024 10:23 AM [facility] Immature Granulocyte % 0.2 0.0 - 0.5 % 11/10/2024 10:23 AM [facility] Blood Venipuncture / Unknown 11/10/2024 9:46 AM TALENT ACQUISITION ADMINISTRATOR 11/10/2024 9:46 AM [facility] Annalisa Mas MD LAB_1 [facility] [address] [place] [address] * (ABNORMAL) Liver Panel (Hepatic Function Panel) (11/10/2024 9:46 AM [facility]) Alkaline Phosphatase 78 40 - 150 U/L 11/10/2024 2:51 PM TALENT ACQUISITION ADMINISTRATOR [facility] Bilirubin, Total 0.6 0.2 - 1.2 mg/dL 11/10/2024 2:51 PM TALENT ACQUISITION ADMINISTRATOR [facility] Bilirubin, Direct 0.3 0.0 - 0.5 mg/dL 11/10/2024 2:51 PM TALENT ACQUISITION ADMINISTRATOR [facility] AST (SGOT) 38 10 - 40 U/L 11/10/2024 2:51 PM TALENT ACQUISITION ADMINISTRATOR [facility] ALT (SGPT) 67(H) 0 - 55 U/L 11/10/2024 2:51 PM TALENT ACQUISITION ADMINISTRATOR [facility] Protein, Total 6.9 6.4 - 8.3 g/dL 11/10/2024 2:51 PM TALENT ACQUISITION ADMINISTRATOR [facility] Albumin 4.0 3.5 - 5.0 g/dL 11/10/2024 2:51 PM TALENT ACQUISITION ADMINISTRATOR [facility] Blood Venipuncture / Unknown 11/10/2024 9:46 AM TALENT ACQUISITION ADMINISTRATOR 11/10/2024 9:46 AM TALENT ACQUISITION ADMINISTRATOR Annalisa Mas MD LAB_1 Performing Organization Address [facility] de Phone Number [facility] * TSH (11/10/2024 9:46 AM TALENT ACQUISITION ADMINISTRATOR) Pathologist [facility] TSH, Sensitive 3.24 0.30 - 4.50 uIU/mL 11/10/2024 5:48 PM TALENT ACQUISITION ADMINISTRATOR [facility] Blood Venipuncture / Unknown 11/10/2024 9:46 AM TALENT ACQUISITION ADMINISTRATOR 11/10/2024 9:46 AM TALENT ACQUISITION ADMINISTRATOR Annalisa Mas MD LAB_1 Performing Organization Address City/[facility]/ZIP Co de Phone Number [facility] [address] * (ABNORMAL) Basic Metabolic Panel (11/10/2024 9:46 AM TALENT ACQUISITION ADMINISTRATOR) Sodium 140 136 - 145 mmol/L 11/10/2024 2:51 PM TALENT ACQUISITION ADMINISTRATOR [facility] Potassium 4.3 3.5 - 5.1 mmol/L 11/10/2024 2:51 PM TALENT ACQUISITION ADMINISTRATOR [facility] Chloride 110(H) 98 - 109 mmol/L 11/10/2024 2:51 PM TALENT ACQUISITION ADMINISTRATOR [facility] CO2 22 20 - 29 mmol/L 11/10/2024 2:51 PM [facility] Anion Gap 8 6 - 16 mmol/L 11/10/2024 2:51 PM [facility] Calcium 9.0 8.4 - 10.4 mg/dL 11/10/2024 2:51 PM [facility] BUN 13 7 - 26 mg/dL 11/10/2024 2:51 PM [facility] Creatinine 0.93 0.73 - 1.18 mg/dL 11/10/2024 2:51 PM [facility] Glucose 155(H) 70 - 100 mg/dL 11/10/2024 2:51 PM [facility] Comment:The given reference range is for the fasting state. Non-fasting reference range for glucose is 70 - 180 mg/dL. GFR, Estimated >60 >60 mL/min/1.7 3m2 11/10/2024 2:51 PM [facility] Hours Fasting 14.0 8 - 12 Hours 11/10/2024 2:51 PM [facility] Blood Venipuncture / Unknown 11/10/2024 9:46 AM TALENT ACQUISITION ADMINISTRATOR 11/10/2024 9:46 AM [facility] Annalisa Mas MD LAB_1 Performing Organization Address City/State/[facility] Co de Phone Number [facility] [address] LABORATORY [address] [place] [address] * (ABNORMAL) Hgb A1C (11/10/2024 9:46 AM [facility]) Pathologist [facility] Hemoglobin A1C (Rapid) 7.1(H) <=5.6 % 11/10/2024 2:43 PM [facility] Estimated Average Glucose (Calc) 157 < 117 mg/dL 11/10/2024 2:43 PM [facility] Comment:Estimated average gl ucose (eAG) converts A1c into glucose units (mg/dL) and estimates average glucose over the past approximately 3 months. The eAG reference interval (<117 mg/dL) corresponds to an A1c of <5.7%. Blood Venipuncture / Unknown 11/10/2024 9:46 AM TALENT ACQUISITION ADMINISTRATOR 11/10/2024 9:46 AM TALENT ACQUISITION ADMINISTRATOR Narrative [facility] - 11/10/2024 2:43 PM TALENT ACQUISITION ADMINISTRATOR For patients not previously diagnosed with diabetes: [...] for further direction. Annalisa Mas MD LAB_1 Performing Organization Address City/[facility]/ZIP Co de Phone Number [facility] [address] [place] [address] * Vitamin B12 Only (11/10/2024 9:46 AM TALENT ACQUISITION ADMINISTRATOR) Vitamin B12 561 213 - 816 pg/mL 11/10/2024 6:22 PM TALENT ACQUISITION ADMINISTRATOR [facility] Blood Venipuncture / Unknown 11/10/2024 9:46 AM TALENT ACQUISITION ADMINISTRATOR 11/10/2024 9:46 AM TALENT ACQUISITION ADMINISTRATOR Annalisa Mas MD LAB_1 Performing Organization Address City/[facility]/ZIP Co de Phone Number [facility] [address] [place] [address] * ECG 12 Lead Outpatient (11/10/2024 9:25 AM TALENT ACQUISITION ADMINISTRATOR) Ventricular Rate 81 BPM [facility] Atrial Rate 81 BPM [facility] P-R Interval 148 ms [facility] QRS Duration 90 ms [facility] QT 364 ms [facility] QTC 422 ms MUSE [facility] P Bronson 18 degrees MUSE GHP R Bronson 5 degrees MUSE GHP T Bronson 8 degrees MUSE [facility] 11/10/2024 9:25 AM TALENT ACQUISITION ADMINISTRATOR Narrative [facility] - 11/10/2024 10:06 AM TALENT ACQUISITION ADMINISTRATOR Sinus rhythm Minimal voltage criteria for LVH, may be normal variant Early transition No previous ECGs available Confirmed by Uvaldo Stratton ([id number]) on 11/10/2024 10:06:24 AM Procedure Note Uvaldo Stratton MD - 11/10/2024 Sinus rhythm Minimal voltage criteria for LVH, may be normal variant Early transition No previous ECGs available Confirmed by Uvaldo Stratton ([id number]) on 11/10/2024 10:06:24 AM Annalisa Mas MD PN ECG ORDERABLES Performing Organization Address City/[facility] Co de Phone Number [facility] [address] [place] [address] * HIV 1/2 Ag/Ab 4th Generation (09/07/2020 9:32 AM TALENT ACQUISITION ADMINISTRATOR) [facility] HIV 1/2 Antigen/Antib camille (4th generation) Negative (Non Reactive) Negative (Non Reactive) 09/07/2020 1:04 PM TALENT ACQUISITION ADMINISTRATOR [facility] Comment:HIV-1 p24 Antigen an d HIV-1/HIV-2 Antibody not detected Blood Venipuncture / Unknown 09/07/2020 9:32 AM TALENT ACQUISITION ADMINISTRATOR 09/07/2020 9:32 AM TALENT ACQUISITION ADMINISTRATOR Annalisa Mas MD LAB_1 Performing Organization Address [facility] [place] [address], [facility] * Hepatitis Panel with Reflex to Confirmation (04/25/2018 11:41 AM CDT) [facility] Hepatitis A Virus AB IgM Nonreactive Non Reactive PN SOFT Hepatitis B Core IgM Antibody Nonreactive Nonreactive PN SOFT Hep B Surf Ag Nonreactive Nonreactive PN SOFT Hepatitis C Antibody Nonreactive Nonreactive PN SOFT 04/25/2018 11:4 1 AM CDT 04/25/2018 4:05 PM CDT Narrative PN SOFT - 04/25/2018 8:55 [place] [address] CLIA number [id number] Dagoberto Morgan MD LAB_1 Performing Organization Address [facility]/State/ZIP Co de Phone Number PN SOFT [address] [place] [address] from Last 3 Months or Most Recently Relevant to Health Maintenance Advance Directives * Full Code (Latest Code Status on File) Date Activated Date Inactivated Comments 05/28/2013 8:11 PM 05/30/2013 3:24 PM Care Teams Director Life Insurance Relationship Specialty Start [place] [address] [address] [place] [address] PCP - General Family Practice 08/14/16
--- OUTSIDE RECORDS SUMMARY | 2024-11-19 11:42 | XMS_ITS | Encounter Summary ---
Author Organization [employer] Address [address] [place] [address] Care Team Providers Care Paper Bag Inspector Name Role Phone Annalisa Mas MD Primary Care Provider [phone] Encounter Details Date Type Department Care Team (Late st Contact Info) Description 11/10/2024 9:30 AM [employer]UM CLE[employer]ER MECHANIC Lab Visit [facility] [address] [place] [address] Prediabetes; Encounter for long-term (current) use of medications; Essential hypertension (HRC); Fatty liver (HRC); Morbid obesity with BMI of 40.0-44.9, adult (HRC); Annual physical exam Social History Tobacco Use Types Packs/Day Years [...] st Contact Info) Description 12/10/2024 8:00 AM V[employer]UUM CLE[employer]ER MECHANIC Appointment [facility] [address] [place] [address] [place] [address] [place] [address] 12/11/2024 7:30 AM [employer] CLE[employer]ER MECHANIC Telemedicine [facility] Diabetes Education [address] [address] Marielle Meek RDN, LD, [facility] [address] [place] [address] 12/15/2024 8:00 AM V[employer]UUM CLE[employer]ER MECHANIC Appointment [facility] [address] Noninvasive Cardiology [address] [place] [phone] 12/25/2024 7:30 AM CDT Telemedicine [facility] Diabetes [address] [address] Marielle Meek RDN, LD, [facility] [address] [place] [address] 01/21/2025 8:40 AM CDT Appointment [facility] [place] [address] [address] [address] [place] [address] Clau Ortiz, HEAD WOOD GRINDER, CRM ARCHITECT [address] [facility] [address] [place] [address] 02/15/2025 8:00 AM CDT Appointment [facility] [address] [place] [address] documented as of this encounter Procedures Procedure Name Priority Date/Time Associated Diagnosis Comments CBC AND DIFFERENTIAL PANEL Routine 11/10/2024 9:46 AM [employer] CLE[employer]CH[employer]IC Essential hypertension (HRC) LIPID PANEL & DIRECT LDL (IF NEEDED) Routine 11/10/2024 9:46 AM [employer] CLE[employer]CH[employer]IC Annual physical exam COMPLETE BLOOD COUNT-W/DIFF Routine 11/10/2024 9:46 AM [employer] CLE[employer]CH[employer]IC Essential hypertension (HRC) LIVER PANEL(HEPATIC FUNCTION PANEL) Routine 11/10/2024 9:46 AM [employer] CLE[employer]CH[employer]IC Fatty liver (HRC) TSH, SENSITIVE Routine 11/10/2024 9:46 AM [employer]CH[employer]IC Morbid obesity with BMI of 40.0-44.9, adult (HRC) BASIC METABOLIC PANEL Routine 11/10/2024 9:46 AM [employer]CH[employer]IC Essential hypertension (HRC) HGB A1C Routine 11/10/2024 9:46 AM [employer] CLE[employer] MECHANIC Prediabetes VITAMIN B12 ONLY Routine 11/10/2024 9:46 AM [employer] CLE[employer]ER MECHANIC Encounter for long-term (current) use of medications documented in this encounter Results * Complete Blood Count-W/Diff (11/10/2024 9:46 AM VACU[employer] CLE[employer] MECHANIC) WBC 4.9 3.5 - 10.5 x10(9)/L 11/10/2024 10:23 AM [facility] RBC 5.12 4.32 - 5.72 x10(12)/L 11/10/2024 10:23 AM [facility] Hemoglobin 15.4 13.5 - 17.5 g/dL 11/10/2024 10:23 AM [facility] HCT 45.4 38.8 - 50.0 % 11/10/2024 10:23 AM [facility] MCV 88.7 80.0 - 100.0 fL 11/10/2024 10:23 AM [facility] MCH 30.1 27.6 - 33.3 pg 11/10/2024 10:23 AM [facility] MCHC 33.9 31.5 - 35.2 g/dL 11/10/2024 10:23 AM [facility] RDW 13.1 11.9 - 15.5 % 11/10/2024 10:23 AM [facility] Platelets 193 150 - 450 x10(9)/L 11/10/2024 10:23 AM [facility] Automated NRBC 0 <=0 /100 WBC 11/10/2024 10:23 AM [facility] Neutrophil Absolute 2.6 1.7 - 7.0 10(9)/L 11/10/2024 10:23 AM [facility] Lymphocyte Absolute 1.5 1.0 - 4.8 10(9)/L 11/10/2024 10:23 AM [facility] Monocyte Absolute 0.5 0.2 - 0.9 10(9)/L 11/10/2024 10:23 AM [facility] Eosinophil Absolute 0.1 0.0 - 0.5 10(9)/L 11/10/2024 10:23 AM [facility] Basophil Absolute 0.0 0.0 - 0.3 10(9)/L 11/10/2024 10:23 AM [facility] Immature Granulocyte % 0.2 0.0 - 0.5 % 11/10/2024 10:23 AM [facility] Blood Venipuncture / Unknown 11/10/2024 9:46 AM [employer]CH[employer]IC 11/10/2024 9:46 AM [facility] Annalisa Mas MD LAB_1 [facility] [address] [place] [address] * Lipid Panel and Direct LDL(If Needed) (11/10/2024 9:46 AM VACUUM CLE[employer]ER MECHANIC) [facility] Cholesterol 177 0 - 199 mg/dL 11/10/2024 2:51 PM V[employer] CLE[employer]ER MECHANIC [facility] Triglyceride 80 <=149 mg/dL 11/10/2024 2:51 PM [employer] CLE[employer]ER MECHANIC [facility] HDL Cholesterol 52 >=40 mg/dL 2:51 PM [employer] CLE[employer]ER MECHANIC [facility] LDL, Calculated 109 <130 mg/dL 2:51 PM [employer] CLE[employer]ER MECHANIC [facility] Non HDL Chol, Calculated 125 <=159 mg/dL 11/10/2024 2:51 PM [employer] MECH[employer]IC [facility] Cholesterol/HDL Ratio 3.4 <=5.0 11/10/2024 2:51 PM [employer] CLE[employer]ER MECHANIC [facility] Hours Fasting 14.0 8 - 12 Hours 11/10/2024 2:51 PM [employer] CLE[employer] MECH[employer]IC [facility] Blood Venipuncture / Unknown 11/10/2024 9:46 AM V[employer] CLE[employer]ER MECHANIC 11/10/2024 9:46 AM [employer] MECH[employer]IC Annalisa Mas MD LAB_1 Performing Organization Address City/[facility]/ZIP Co de Phone Number [facility] [address] [place] [address] LABORATORY [address] [place] [phone] * TSH (11/10/2024 9:46 AM VACUUM CLEANER MECHANIC) Pathologist [facility] TSH, Sensitive 3.24 0.30 - 4.50 uIU/mL 11/10/2024 5:48 PM [employer] CLE[employer]ER MECHANIC [facility] Blood Venipuncture / Unknown 11/10/2024 9:46 AM [employer] MECH[employer]IC 11/10/2024 9:46 AM [employer]CH[employer]IC Annalisa Mas MD LAB_1 Performing Organization Address [facility]/ZIP Co de Phone Number [facility] [address] [place] [address] * (ABNORMAL) Liver Panel (Hepatic Function Panel) (11/10/2024 9:46 AM V[employer]UUM CLE[employer]ER MECHANIC) Alkaline Phosphatase 78 40 - 150 U/L 11/10/2024 2:51 PM V[employer] CLE[employer]ER MECHANIC [facility] Bilirubin, Total 0.6 0.2 - 1.2 mg/dL 11/10/2024 2:51 PM [employer] CLE[employer]ER MECHANIC [facility] Bilirubin, Direct 0.3 0.0 - 0.5 mg/dL 11/10/2024 2:51 PM V[employer] CLE[employer]ER MECHANIC [facility] AST (SGOT) 38 10 - 40 U/L 11/10/2024 2:51 PM [employer] CLE[employer]ER MECHANIC [facility] ALT (SGPT) 67(H) 0 - 55 U/L 11/10/2024 2:51 PM [employer] CLE[employer]ER MECHANIC [facility] Protein, Total 6.9 6.4 - 8.3 g/dL 11/10/2024 2:51 PM [employer] CLE[employer]ER MECH[employer]IC [facility] Albumin 4.0 3.5 - 5.0 g/dL 11/10/2024 2:51 PM [employer] CLE[employer] MECH[employer]IC [facility] Blood Venipuncture / Unknown 11/10/2024 9:46 AM V[employer] CLE[employer]ER MECHANIC 11/10/2024 9:46 AM V[employer] CLE[employer]ER MECHANIC Annalisa Mas MD LAB_1 [facility] [address] * (ABNORMAL) Basic Metabolic Panel (11/10/2024 9:46 AM VACUUM CLE[employer]ER MECHANIC) Sodium 140 136 - 145 mmol/L 11/10/2024 2:51 PM [employer] CLE[employer] MECHANIC [facility] Potassium 4.3 3.5 - 5.1 mmol/L 11/10/2024 2:51 PM [employer] CLE[employer]ER MECHANIC [facility] Chloride 110(H) 98 - 109 mmol/L 11/10/2024 2:51 PM V[employer] CLE[employer]ER MECHANIC [facility] CO2 22 20 - 29 mmol/L 11/10/2024 2:51 PM V[employer] CLE[employer]ER MECHANIC [facility] Anion Gap 8 6 - 16 mmol/L 11/10/2024 2:51 PM [employer] CLE[employer]ER MECHANIC [facility] Calcium 9.0 8.4 - 10.4 mg/dL 11/10/2024 2:51 PM V[employer] CLE[employer]ER MECHANIC [facility] BUN 13 7 - 26 mg/dL 11/10/2024 2:51 PM [employer] CLE[employer]ER MECHANIC [facility] Creatinine 0.93 0.73 - 1.18 mg/dL 11/10/2024 2:51 PM [employer] CLE[employer]ER MECHANIC [facility] Glucose 155(H) 70 - 100 mg/dL 11/10/2024 2:51 PM V[employer] CLE[employer]ER MECHANIC [facility] Comment:The given reference range is for the fasting state. Non-fasting reference range for glucose is 70 - 180 mg/dL. GFR, Estimated >60 >60 mL/min/1.7 3m2 11/10/2024 2:51 PM V[employer] CLE[employer]ER MECHANIC [facility] Hours Fasting 14.0 8 - 12 Hours 11/10/2024 2:51 PM [facility] Blood Venipuncture / Unknown 11/10/2024 9:46 AM V[employer]UUM CLE[employer]ER MECHANIC 11/10/2024 9:46 AM V[employer] CLE[employer]ER MECHANIC Annalisa Mas MD LAB_1 Performing Organization Address [facility]/ZIP Co de Phone Number [facility] [address] LABORATORY [address] [place] [address] * Vitamin B12 Only (11/10/2024 9:46 AM VACUUM CLEANER MECHANIC) [facility] Vitamin B12 561 213 - 816 pg/mL 11/10/2024 6:22 PM [facility] Blood Venipuncture / Unknown 11/10/2024 9:46 AM V[employer]UUM CLE[employer]ER MECHANIC 11/10/2024 9:46 AM V[employer] CLE[employer]ER MECHANIC Annalisa Mas MD LAB_1 Performing Organization Address [facility] de Phone Number [facility] [address] * (ABNORMAL) Hgb A1C (11/10/2024 9:46 AM VACUUM CLEANER MECHANIC) [facility] Hemoglobin A1C (Rapid) 7.1(H) <=5.6 % 11/10/2024 2:43 PM [facility] Estimated Average Glucose (Calc) 157 < 117 mg/dL 11/10/2024 2:43 PM [facility] Comment:Estimated average gl ucose (eAG) converts A1c into glucose units (mg/dL) and estimates average glucose over the past approximately 3 months. The eAG reference interval (<117 mg/dL) corresponds to an A1c of <5.7%. Blood Venipuncture / Unknown 11/10/2024 9:46 AM V[employer]UUM CLE[employer]ER MECHANIC 11/10/2024 9:46 AM VACUUM CLEANER MECHANIC Narrative [facility] - 11/10/2024 2:43 PM V[employer]UUM CLEANER MECHANIC For patients not previously diagnosed with diabetes: [...] for further direction. Annalisa Mas MD LAB_1 [facility] [address] [place] [address] documented in this encounter Visit Diagnoses Diagnosis Prediabetes Other abnormal glucose Encounter for long-term (current) use of medications Encounter for long-term (current) use of other medications Essential hypertension (HRC) Unspecified essential hypertension Fatty liver (HRC) Other chronic nonalcoholic liver disease Morbid obesity with BMI of 40.0-44.9, adult (HRC) Annual physical exam Routine general medical examination at a health care facility documented in this encounter Care Teams Paper Bag Inspector Relationship Specialty [place] [address] [place] [address] PCP - General Family Practice 08/14/16 documented as of this encounter
[2024-11-19 11:50] LABS: Basophils Absolute Auto 0.05 K/uL (0.00-0.30); Basophils Percent Auto 0.9 % (0.0-3.0); Eosinophils Absolute Auto 0.13 K/uL (0.00-0.50); Eosinophils Percent Auto 2.3 % (0.0-7.0); Hemoglobin* 15.5 gm/dL (13.5-17.5); Immature Granulocytes Abs Auto 0.01 K/uL (0.00-0.30); Immature Granulocytes Pct Auto 0.2 %; Lymphocytes Absolute Auto 1.68 K/uL (0.90-2.90); Lymphocytes Percent Auto 29.9 % (20-44); Mean Corpuscular HGB Conc 34 gm/dL (32-36); Mean Corpuscular Hemoglobin 30 pg (26-34); Mean Corpuscular Volume 88 fL (80-100); Neutrophils Absolute Auto 3.18 K/uL (1.7-7.0); Neutrophils Percent Auto 56.7 % (42.0-72.0); Platelet Count* 177 K/uL (140-440); RDW Coefficient of Variation % 12.4 % (11.5-15.5); Red Blood Count 5.12 m/uL (4.30-5.90); White Blood Count* 5.61 K/uL (4.50-11.00)
[2024-11-19 11:51] LABS: Troponin, Point-of-Care* 0.01 ng/ml (0.01-0.04)
[2024-11-19 11:56] LABS: Chloride* 105 mmol/L (96-114); Potassium* 4.1 mmol/L (3.6-5.1); Sodium* 138 mmol/L (135-149)
[2024-11-19 11:59] LABS: Anion Gap 6 mEq/L (7-15); Blood Urea Nitrogen* 19 mg/dL (5-24); Carbon Dioxide* 27 mmol/L (20-32); Creatinine* 0.9 mg/dL (0.5-1.5); Est. Creatinine Clearance* 130.63; Estimated Glomerular Filt Rate 107 ml/min; Glucose* 143 mg/dL (60-115)
[2024-11-19 12:00] LABS: Calcium* 9.2 mg/dL (8.4-10.6); Slide Review Reflex No
== END 2024-11-19 12:57 | disposition home or self-care (01) ==
PROVIDERS: Emergency Provider Family Medicine
DX: I10 Essential (primary) hypertension (principal); F41.9 Anxiety disorder, unspecified; E11.9 Type 2 diabetes mellitus without complications
CPT/HCPCS: 36415; 80048; 84484; 85025; 93005; 99284